=== PATIENT | male | born 1980 | race Caucasian/White ===

== ENCOUNTER 2021-01-26 23:02 | Emergency (ER) | payer BC, OTHER ==
[2021-01-26] MEDS ORDERED: Lactated Ringers 1,000 ML IV ONE (23:56)
[2021-01-26] MEDS ORDERED: Aspirin 81 MG Tab.Chew PO ONE (23:57)
--- NOTE | 2021-01-27 00:36 | PCM.EKG ---
#1 Interpretation EKG Date: 01/27/21 Time: 00:26 Rhythm: NSR Rate (Beats/Min): 96 [place]: Normal P-Wave: Present QRS: Other (occaisonal PVC) ST-T: Normal QT: Normal Comparison: NA - No Prior EKG EKG Interpretation Comments: Sinus Rhythm with occasional PVC
[2021-01-27 00:50] LABS: BLOOD UREA NITROGEN,BUN 10 mg/dL (7.0-18.0); CARBON DIOXIDE,CO2 26.4 mmol/L (21.0-32.0); CHLORIDE,CL 93 mmol/L (98-107); GLUCOSE RANDOM 137 mg/dL (74-106); POTASSIUM,K 3.8 mmol/L (3.5-5.1); SODIUM,NA 128 mmol/L (136-148)
[2021-01-27] MEDS ORDERED: Iopamidol 755 MG/ML 500 ML Multipack Bottle IVPUSH STA (01:33)
--- NOTE | 2021-01-27 02:09 | CT ---
INDICATION: Eval for PE, COVID/flu positive COMPARISON: None. TECHNIQUE: CT of the chest with 100 cc of Isovue 370 IV contrast. Coronal and sagittal reconstructions. 3D post processing was performed. FINDINGS: Normal heart size. Normal caliber thoracic aorta. The main pulmonary artery is mildly enlarged measuring 3.6 cm. This can be seen with pulmonary hypertension. Negative for acute pulmonary embolism. No pericardial effusion. Few mildly prominent mediastinal and bilateral hilar lymph nodes are likely reactive. There are extensive patchy ground-glass opacities throughout the lungs bilaterally compatible with COVID pneumonia. No pleural effusion or pneumothorax. No central endobronchial lesion. There is a partially calcified nodule in the right thyroid lobe measuring approximately 1.6 cm in size. The visualized upper abdomen is unremarkable. The bones are unremarkable. IMPRESSION: 1. Negative for acute pulmonary embolism. 2. Extensive bilateral patchy pulmonary opacities compatible with COVID pneumonia. 3. Partially calcified right thyroid nodule measuring approximately 1.6 cm. This could be further evaluated with nonemergent thyroid ultrasound. Please note that all CT scans at this facility use dose modulation, iterative reconstruction, and/or weight-based dosing when appropriate to reduce radiation dose to as low as reasonably achievable. Dictated by Lyly Chiang MD @ 01/27/2021 2:07:35 AM (Electronically Signed)
[2021-01-27 02:13] LABS: CORONAVIRUS COVID-19 NAA POSITIVE (NEGATIVE); INFLUENZA A NAA NEGATIVE (NEGATIVE); INFLUENZA B NAA NEGATIVE (NEGATIVE); RESPIRATORY SYNCYTIAL VIR NAA NEGATIVE (NEGATIVE)
[2021-01-27] MEDS ORDERED: Dexamethasone 4 MG Tab PO ONE (02:16)
[2021-01-27] MEDS ORDERED: REMDESIVIR 200 MG in Sodium Chloride 0.9% 250 ML IV ONE (02:16)
--- NOTE | 2021-01-27 02:29 | EDM.PDOC ---
ED HPI GENERAL MEDICAL PROBLEM - General Chief Complaint: General Stated Complaint: COVID POS, POSSIBLE DEHYDRATION Time Seen by Provider: 01/26/21 23:46 - History of Present Illness INITIAL COMMENTS - FREE TEXT/NARRATIVE: CHIEF COMPLAINT(S): Dehydration HISTORY OF PRESENT ILLNESS: This is a 40-year-old man with a past medical history of recent diagnosis of COVID-19 and influenza a who is on Tamiflu who comes to the emergency department with a chief complaint of dehydration. The patient states that he was diagnosed with Covid and since that time he has been experiencing shortness of breath and nonproductive cough. He currently states that he is not feeling short of breath and he came to the emergency department because he feels dehydrated. He denies any chest pain, abdominal pain, nausea or vomiting. He states he does have some nausea and has been experiencing some nonbloody diarrhea but has not had any vomiting. He does feel fatigued. He denies any other symptoms. REVIEW OF SYSTEMS: Constitutional: Positive for fatigue denies fever, chills. Eyes: Denies eye pain Ears, Nose, Mouth, & Throat: Denies earache Cardiovascular: Denies chest pain Respiratory: Positive for shortness of breath and nonproductive cough Gastrointestinal: Positive for nausea and diarrhea. Denies vomiting, hematochezia, hematemesis, bilious emesis Genitourinary: Denies hematuria Skin:Denies a rash MSK: Denies joint pain Neurological: Denies blurred vision Psychiatric: Denies depression PAST MEDICAL HISTORY: As per history of present illness and as reviewed below otherwise noncontributory. SURGICAL HISTORY: As per history of present illness and as reviewed below otherwise noncontributory. SOCIAL HISTORY: As per history of present illness and as reviewed below otherwise noncontributory. FAMILY HISTORY: As per history of present illness and as reviewed below otherwise noncontributory. EXAMINATION OF ORGAN SYSTEMS/BODY AREAS: Constitutional: Blood pressure is 103/52, heart rate 83, respiratory rate 24 with an oxygen saturation of 83% on room air. Temperature 37.0. On 10 L nonrebreather patient is saturating 94% General: Young man who does not appear to be in acute distress Psychiatric: Appropriate mood and affect. Eyes: No scleral icterus or conjunctival erythema ENMT: Moist mucous membranes. No pharyngeal erythema Cardiovascular: Regular, rate, and rhythm. No gallops, murmurs, or rubs. Bilateral upper extremity pulses symmetric and intact. No peripheral edema. No JVD. Respiratory: Lungs clear to auscultation bilaterally. No wheezes, rales, or rhonchi. Speaking in full sentences. Gastrointestinal: Soft, non-tender, non-distended. Normoactive bowel sounds Genitourinary: No suprapubic tenderness Musculoskeletal: Normal range of motion. Skin: No lesions or abrasions. Neurological: Alert, GCS 15 MEDICAL DECISION MAKING AND COURSE IN THE ED WITH INTERPRETATION/REVIEW OF DIAGNOSTIC STUDIES: This is a 40-year-old man with a recent diagnosis of COVID- 19 and influenza A on Tamiflu who comes to the emergency department with concerns about dehydration and fatigue who is profoundly hypoxic on room air and mildly tachypneic with speaking in full sentences. At this time we did place the patient on nasal cannula however the patient's oxygen saturation did not improve therefore we placed the patient on nonrebreather and his oxygen saturation on 10 L nonrebreather did improve to 94%. We did obtain a screening EKG which not reveal any acute signs of ischemia. At this time I do believe his symptoms are all due to COVID-19 and influenza. However we will obtain a CT angiogram of the chest to evaluate for pulmonary embolism. We will obtain a cardiac work-up. We will provide the patient 1 L of lactated Ringer's bolus and 324 mg of p.o. aspirin. Patient was amenable to this plan DDx: COVID-19 pneumonia, influenza, bacterial pneumonia, pulmonary embolism, ACS Laboratory: CBC is unremarkable. INR is normal. CMP reveals hyponatremia at 128, hypochloremia at 93, hyperglycemia at 137, transaminitis with an AST of 91, ALT of 75 and alkaline phosphatase of 37. Hypoalbuminemia at 2.9. Troponin is negative. Covid is positive. Influenza a and RSV are negative. Influenza B negative. The radiological images were viewed by myself along with reading the report from the radiologist. CT angiogram of the chest does not reveal any acute evidence of pulmonary embolism. There is bilateral patchy infiltrates consistent with Covid pneumonia. There is a partially calcified right thyroid nodule measuring approximately 1.6 cm. After labs and imaging I did discuss results with the patient. At this time given that he is requiring profound amounts of oxygen I did discuss admission with the patient. He was amenable to this plan. At this current time we do not have any available beds in our institution. Therefore I contacted [facility] in [place] and spoke with Dr. Davies who accepted the patient for transfer. The patient will be transferred via ALS ambulance. Currently there is no ALS ambulance available. The patient will be transferred in approximately 2-1/2 hours to [facility] in [place]. We will provide the patient with Decadron 6 mg p.o. and his first dose of remdesivir. DISPOSITION: Patient was transferred to [facility] in [place] in stable yet serious condition CONDITION: Serious PROCEDURES: Cardiac monitoring interpretation, pulse oximetry interpretation FINAL IMPRESSION(S)/DIAGNOSES: 1. Acute hypoxic respiratory failure requiring supplemental oxygenation secondary to COVID-19 pneumonia Critical Care Procedure Note Authorized and performed by: Horacio De La Fuente M.D. Critical Care Time: 60 minutes Due to a high probability of clinically significant, life threatening deterioration, the patient required my highest level of preparedness to intervene emergently and I personally spent this critical care time directly and personally managing the patient. This critical care time included obtaining a history, examining the patient, pulse oximetry; ordering and review of studies; arranging urgent treatment with development of a management plan; evaluation of a patients reponse to treatment; frequent assessment; and discussions with other providers. This critical care time was performed to assess and manage the high probability of imminent, life threatening deterioration that could result in multiorgan failure. It was exclusive of separate billable procedures and treating other patients. Please see MDM section and rest of the note for further information on patient assessment and treatment. Please see MDM section and rest of the note for further information on patient assessment and treatment. Horacio De La Fuente M.D. - Related Data Allergies Allergy/AdvReac Type Severity Reaction Status Date / Time No Known Allergies Allergy Verified 01/26/21 23:47 Home Meds: Home Meds . 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 Hematologic History: Reports: None Immunologic History: Reports: None Oncologic (Cancer) History: Reports: None Dermatologic History: Reports: None - Infectious Disease History Infectious Disease History: Reports: Influenza, Novel Coronavirus - Past Surgical History Head Surgeries/Procedures: Reports: None Social & Family History - Recreational Drug Use Recreational Drug Use: No ED ROS GENERAL - Review of Systems Review Of Systems: See Below ED EXAM, GENERAL - Physical Exam Exam: See Below Course - Vital Signs Last Recorded V/S: Last Vital Signs Temp 37.0 C 01/26/21 23:35 Pulse 98 01/27/21 02:10 Resp 22 H 01/27/21 02:10 BP 122/63 01/27/21 02:10 Pulse Ox 96 01/27/21 02:10 - Orders/Labs/Meds Orders: Active Orders 24 hr Category Date Time Status Cardiac Monitoring [RC] . DIRECTED Care 01/26/21 23:57 Active Pulse Oximetry [RC] ASDIRECTED Care 01/26/21 23:57 Active Lactated Ringers [Ringers, Lactated] 1,000 ml Med 01/27/21 02:45 Ordered IV ASDIRECTED Medication Orders Lactated Ringer's (Ringers, Lactated) 1,000 mls @ 150 mls/hr IV ASDIRECTED BRANDI Labs: Laboratory Tests 01/27/21 01/27/21 01/27/21 Range/Units 00:15 00:15 00:15 WBC 6.17 (4.0-11.0) K/uL RBC 5.16 (4.50-5.90) M/uL Hgb 14.7 (13.0-17.0) g/dL Hct 43.1 (38.0-50.0) % MCV 83.5 (80.0-98.0) fL MCH 28.5 (27.0-32.0) pg MCHC 34.1 (31.0-37.0) g/dL RDW Std Deviation 39.8 (28.0-62.0) fl RDW Coeff of Felipe 13 (11.0-15.0) % Plt Count 155 (150-400) K/uL MPV 10.20 (7.40-12.00) fL Neut % (Auto) 69.3 (48.0-80.0) % Lymph % (Auto) 21.6 (16.0-40.0) % [place] % (Auto) 8.9 (0.0-15.0) % Eos % (Auto) 0.0 (0.0-7.0) % Baso % (Auto) 0.2 (0.0-1.5) % Neut # (Auto) 4.3 (1.4-5.7) K/uL Lymph # (Auto) 1.3 (0.6-2.4) K/uL [place] # (Auto) 0.6 (0.0-0.8) K/uL Eos # (Auto) 0.0 (0.0-0.7) K/uL Baso # (Auto) 0.0 (0.0-0.1) K/uL Nucleated RBC % 0.0 /100WBC Nucleated RBCs # 0 K/uL INR 1.02 Sodium 128 L (136-148) mmol/L Potassium 3.8 (3.5-5.1) mmol/L Chloride 93 L (98-107) mmol/L Carbon Dioxide 26.4 (21.0-32.0) mmol/L BUN 10 (7.0-18.0) mg/dL Creatinine 1.0 (0.8-1.3) mg/dL Est Cr Clr Drug Dosing 121.28 mL/min Estimated GFR (MDRD) > 60.0 ml/min Glucose 137 H (74-106) mg/dL Lactic Acid (0.4-2.0) mmol/L Calcium 7.2 L (8.5-10.1) mg/dL Magnesium 2.1 (1.8-2.4) mg/dL Total Bilirubin 0.5 (0.2-1.0) mg/dL AST 91 H (15-37) IU/L ALT 75 H (14-63) IU/L Alkaline Phosphatase 37 L (46-116) U/L Troponin I < 0.050 (0.000-0.056) ng/mL Total Protein 7.0 (6.4-8.2) g/dL Albumin 2.9 L (3.4-5.0) g/dL Globulin 4.1 H (2.6-4.0) g/dL Albumin/Globulin Ratio 0.7 L (0.9-1.6) Influenza Type A RNA (NEGATIVE) RSV RNA (INAAT) (NEGATIVE) Influenza Type B RNA (NEGATIVE) SARS-CoV-2 RNA (VALERIE) (NEGATIVE) 01/27/21 01/27/21 Range/Units 01:20 01:20 WBC (4.0-11.0) K/uL RBC (4.50-5.90) M/uL Hgb (13.0-17.0) g/dL Hct (38.0-50.0) % MCV (80.0-98.0) fL MCH (27.0-32.0) pg MCHC (31.0-37.0) g/dL RDW Std Deviation (28.0-62.0) fl RDW Coeff of Felipe (11.0-15.0) % Plt Count (150-400) K/uL MPV (7.40-12.00) fL Neut % (Auto) (48.0-80.0) % Lymph % (Auto) (16.0-40.0) % [place] % (Auto) (0.0-15.0) % Eos % (Auto) (0.0-7.0) % Baso % (Auto) (0.0-1.5) % Neut # (Auto) (1.4-5.7) K/uL Lymph # (Auto) (0.6-2.4) K/uL [place] # (Auto) (0.0-0.8) K/uL Eos # (Auto) (0.0-0.7) K/uL Baso # (Auto) (0.0-0.1) K/uL Nucleated RBC % /100WBC Nucleated RBCs # K/uL INR Sodium (136-148) mmol/L Potassium (3.5-5.1) mmol/L Chloride (98-107) mmol/L Carbon Dioxide (21.0-32.0) mmol/L BUN (7.0-18.0) mg/dL Creatinine (0.8-1.3) mg/dL Est Cr Clr Drug Dosing mL/min Estimated GFR (MDRD) ml/min Glucose (74-106) mg/dL Lactic Acid 0.7 (0.4-2.0) mmol/L Calcium (8.5-10.1) mg/dL Magnesium (1.8-2.4) mg/dL Total Bilirubin (0.2-1.0) mg/dL AST (15-37) IU/L ALT (14-63) IU/L Alkaline Phosphatase (46-116) U/L Troponin I (0.000-0.056) ng/mL Total Protein (6.4-8.2) g/dL Albumin (3.4-5.0) g/dL Globulin (2.6-4.0) g/dL Albumin/Globulin Ratio (0.9-1.6) Influenza Type A RNA NEGATIVE (NEGATIVE) RSV RNA (INAAT) NEGATIVE (NEGATIVE) Influenza Type B RNA NEGATIVE (NEGATIVE) SARS-CoV-2 RNA (VALER[place]) POSITIVE H (NEGATIVE) Meds: Medications Generic Name Dose Route Start Last Admin Trade Name Freq PRN Reason Stop Dose Admin Lactated Ringer's 1,000 mls @ 150 mls/hr 01/27/21 02:45 Ringers, Lactated IV ASDIRECTED BRANDI Discontinued Medications Generic Name Dose Route Start Last Admin Trade Name Freq PRN Reason Stop Dose Admin Aspirin 324 mg 01/26/21 23:57 01/27/21 00:14 Aspirin 81 Mg Tab.Chew PO 01/26/21 23:58 324 mg ONETIME ONE Administration Dexamethasone 6 mg 01/27/21 02:16 Dexamethasone 4 Mg Tab PO 01/27/21 02:17 ONETIME ONE Lactated Ringer's 1,000 mls @ 999 mls/hr 01/26/21 23:56 01/27/21 00:18 Ringers, Lactated IV 01/27/21 00:56 999 mls/hr .BOLUS ONE Administration Remdesivir 200 mg/ Sodium 250 mls @ 250 mls/hr 01/27/21 02:16 Chloride IV 01/27/21 02:17 ONETIME ONE Iopamidol 100 ml 01/27/21 01:33 01/27/21 01:34 Iopamidol 755 Mg/Ml 500 Ml Multipack Bottle IVPUSH 01/27/21 01:34 100 ml ONETIME STA Administration Departure - Departure Time of Disposition: 02:29 Disposition: DC/Tfer to Acute Hospital 02 Condition: Serious Clinical Impression: Hypoxia, COVID-19 - Discharge Information Referrals: PCP,None [Primary Care Provider] - Forms: ED Department Discharge Sepsis Event Note (ED) - Evaluation Sepsis Screening Result: No Definite Risk - Focused Exam Vital Signs: Vital Signs Temp Pulse Resp BP Pulse Ox 01/27/21 02:10 98 22 H 122/63 96 01/26/21 23:45 94 L 01/26/21 23:35 37.0 C 83 24 H 103/52 L 83 L - My Orders Last 24 Hours: My Active Orders 01/26/21 23:57 Cardiac Monitoring [RC] . DIRECTED Pulse Oximetry [RC] ASDIRECTED 01/27/21 02:45 Lactated Ringers [Ringers, Lactated] 1,000 ml IV ASDIRECTED - Assessment/Plan Last 24 Hours: My Active Orders 01/26/21 23:57 Cardiac Monitoring [RC] . DIRECTED Pulse Oximetry [RC] ASDIRECTED 01/27/21 02:45 Lactated Ringers [Ringers, Lactated] 1,000 ml IV ASDIRECTED
[2021-01-27] MEDS ORDERED: Lactated Ringers 1,000 ML IV SCH (02:45)
== END 2021-01-27 05:30 ==
LOC: MW.ED 23:02
DX: U07.1 COVID-19 (principal); J12.82 Pneumonia due to coronavirus disease 2019; J96.01 Acute respiratory failure with hypoxia
CPT/HCPCS: 0241U; 36415; 71275; 80053; 83605; 83735; 84484; 85025; 85610; 93005; 96365; 99285; A9270; J7050; J7120; J8540; Q9967

== ENCOUNTER 2024-03-01 17:37 | Emergency (ER) | payer OTHER | END 2024-03-01 20:26 | disposition home or self-care (01) | LOC: MW.ED 17:37 | DX: S91.204A Unspecified open wound of right lesser toe(s) with damage to nail, initial encounter (principal); Z75.8 Other problems related to medical facilities and other health care; X58.XXXA Exposure to other specified factors, initial encounter | CPT/HCPCS: 73630-26-RT; 73630-RT; 99283 ==